=== PATIENT | female | born 1960 | race Caucasian/White ===

== ENCOUNTER 2016-10-12 18:09 | Emergency (ER) | payer SELFPAY ==
[2016-10-12 18:14] VITALS: BP 149/79; PULSE 88; TEMP 98; BMI 48.8
[2016-10-12] MEDS ORDERED: IBUPROFEN 600 MG TABLET (FP) PO ONE ×2 (18:37→18:51)
--- NOTE | 2016-10-12 18:42 | PDOC ---
History of Present Illness - General Chief Complaint: Pain Stated Complaint: INFECTION Time Seen by Provider: 10/12/16 18:37 History Source: Patient Exam Limitations: No Limitations - History of Present Illness Initial Comments: 10/12/16 18:44 My chief complaint: Mid right thumb nail tenderness History of present illness: Patient is a 56-year-old female with no significant medical history here today complaining of right thumb pain under mid nail bed with discoloration of light green noted. Patient denies any injury to nail. Patient had artificial nails applied on 10/03/2016. Patient said that she removed the artificial nail 2 days ago due to discomfort under the nail and patient noticed the area of light green Center of nail bed. Patient does not have any surrounding redness of paronychium. Patient denies any numbness of thumb. Timing/Duration: getting worse Severity: moderate Associated Symptoms: reports: other (rt. thumb pain under the nail ) Past History - Past Medical History Allergies/Adverse Reactions: Allergies Allergy/AdvReac Type Severity Reaction Status Date / Time Penicillins Allergy Verified 10/12/16 18:11 Home Medications: Ambulatory Orders Albuterol Sulfate Inhaler - [Ventolin HFA Inhaler -] 1 - 2 inh IH PRN 06/24/14 Naproxen [Naprosyn -] 500 mg PO BID PRN #14 tablet 06/24/14 Other medical history: none - Psycho/Social/Smoking Cessation Hx Anxiety: No Suicidal Ideation: No Smoking Status: Yes Smoking History: Never smoked Have you smoked in the past 12 months: No Number of Cigarettes Smoked Daily: 0 Information on smoking cessation initiated: No Hx Alcohol Use: No Drug/Substance Use Hx: No Substance Use Type: None Review of Systems - Review of Systems Able to Perform ROS?: Yes Constitutional: No: Symptoms Reported HEENTM: No: Symptoms Reported Respiratory: No: Symptoms reported Cardiac (ROS): No: Symptoms Reported ABD/GI: No: Symptoms Reported : No: Symptoms Reported Musculoskeletal: No: Symptoms Reported Integumentary: Yes: Other (pain under rt. thumb nailbed) Neurological: No: Symptoms reported *Physical Exam - Vital Signs Last Vital Signs Temp Pulse Resp BP Pulse Ox 98.0 F 88 18 149/79 100 10/12/16 18:11 10/12/16 18:11 10/12/16 18:11 10/12/16 18:11 10/12/16 18:11 - Physical Exam General Appearance: Yes: Appropriately Dressed Respiratory/Chest: positive: Lungs Clear, Normal Breath Sounds Cardiovascular: positive: Regular Rhythm, Regular Rate, S1, S2 Comments:: 10/12/16 18:41 radial pulse 4 + rt. Extremity: positive: Normal Capillary Refill, Normal Range of Motion (rt. thumb dip, mcp jt full range of motion ), Tender (rt. thumb mid nailbed) Integumentary: positive: Other (rt. thumb under mid nailbed 0.25 cm diameter area of light green noted, no surrounding erythema of paroncyhium) Neurologic: positive: Alert, Normal Response Medical Decision Making - Medical Decision Making 10/12/16 18:47 Patient is a 56-year-old female with no significant medical history here today complaining of right thumb pain under mid nail bed with discoloration of light green noted. Patient denies any injury to nail. Patient had artificial nails applied on 10/03/2016. Patient said that she removed the artificial nail 2 days ago due to discomfort under the nail and patient noticed the area of light green Center of nail bed. Patient does not have any surrounding redness of paronychium. Patient denies any numbness of thumb. tinea ulgium rt. thumb nailbed PLAN: ibuprofen 600 mg po now follow up with dermatology 10/12/16 18:51 *DC/Admit/Observation/Transfer Diagnosis at time of Disposition: Tinea unguium - Discharge Dispostion Disposition: HOME Condition at time of disposition: Stable - Referrals Referrals: [facility]ila [Non Staff, Medical] - - Patient Instructions Additional Instructions: Follow-up with rv detailer as soon as possible for further evaluation Do not soak your nail or a temp to remove other artificial nails go back to nail salon have them remove other nails Return to emergency room only if any redness around nail Take ibuprofen as needed as directed by cash room clerk for pain Patient voiced understanding of discharge instructions and all questions were answered
== END 2016-10-12 18:58 | disposition home or self-care (01) ==
LOC: JERFT 18:09
DX: B35.1 Tinea unguium (principal)
CPT/HCPCS: 99281-25